=== PATIENT | male | born 1950 | race Caucasian/White ===

== ENCOUNTER 2023-10-28 11:13 | Emergency (ER) | payer MEDICARE, OTHER, SELFPAY ==
[2023-10-28 11:27] VITALS: BP 128/84
[2023-10-28 11:41] VITALS: BMI 29.2
--- NOTE | 2023-10-28 12:08 | ED.GENMED ---
History of Present Illness
<Opal Jenkins PA-C - Last Filed: 10/28/23 17:40>
General
Chief Complaint: Abdominal Pain
Source: patient
Exam Limitations: none
Time Seen by Provider: 10/28/23 11:34
Nursing documentation reviewed up to this point in time: agreed with
Travel History
Have you had any contact with someone who has COVID-19?: No
Do you have any symptoms of coronavirus? Fever > 100 degrees, chills, cough, shortness of breath, sore throat, loss of taste or smell, muscle aches, or headache?: No
History of Present Illness
History of Present Illness:
The patient is a 73 year old male with history CAD, hypertension, perforated diverticulitis, kidney stones, hypothyroid, bladder cancer in remission presenting to the emergency department for evaluation of left lower abdominal pain. Symptoms
started 3 days ago, on Friday, after eating breakfast. Pain seems to come and go and is worse after eating, but has persisted since Friday. Patient does report some radiation of pain to left lower back. Patient reports associated diarrhea but
denies any nausea, vomiting. Patient denies any urinary symptoms. Patient denies any fever, chills, chest pain, shortness of breath.
Patient states that this seems similar to prior diverticulitis flare in the past in 2019. Patient states symptoms are different than prior kidney stones.
Past History
<Opal Jenkins PA-C - Last Filed: 10/28/23 17:40>
Past History
ED Past Medical History: CAD, GERD, HTN, Hypercholesterolemia, Hypothyroidism and Other (bladder ca, Pre-diabetic, Kidney stones)
ED Past Surgical History: Cardiac (3 cessel CABG 2016) and Urological (Bladder cancer surgeries)
Social History
Tobacco: Non-smoker (Cigars)
Alcohol: None
Drug: None
Personal:
Living: with family
Employment: Employed
Family History
Family History: Other (Noncontributory)
Phy Exam
<Opal Jenkins PA-C - Last Filed: 10/28/23 17:40>
Physical Exam
Physical Exam:
General: In no apparent distress, nontoxic appearing
Vitals: Vital signs stable, afebrile
HEENT: Atraumatic, normocephalic; pupils equal round reactive to light bilaterally, sclera anicteric bilaterally, protecting airway
Neck: appears supple, trachea midline
CV: Regular rate and rhythm, heart sounds normal, no evidence of cyanosis
Resp: No evidence of respiratory distress, lungs clear bilaterally
Abd: Soft, mildly tender in left lower quadrant without rebound or guarding, non-distended
Extremities: No deformities, no evidence of cyanosis or edema; DP pulse palpable equal bilateral
Neuro: alert and oriented x 3; grossly intact
Psych: Normal affect
Skin: Intact, no rashes
Course
<Opal Jenkins PA-C - Last Filed: 10/28/23 17:40>
Orders/Labs/Results
Orders:
Orders
10/28/23 12:00
0.9% Sodium Chloride 1000 ml [Nss] 1,000 ml IV BOLUS
10/28/23 12:04
CT Abd/Pel (IV only)-DH only Urgent
Comment:
Reason For Exam: LLQ abdominal pain, hx perforated diverticulitis
10/28/23 12:09
Complete Blood Count/With Diff Urgent
Comprehensive Metabolic Panel Urgent
Lipase Urgent
10/28/23 13:20
Urinalysis Reflex To Culture Urgent
Date Specimen was Collected: 10/28/23
Time Specimen was Collected: 13:19
10/28/23 13:31
Amoxicillin 875 mg/Clav 125 mg [Augmentin 875 mg/125 mg] 1 tablet PO NOW STA
Abnormal Lab Results
04/30/24 04/30/24
12:09 13:20
RBC 4.12 L 10^6/uL
(4.70-6.10)
Hgb 12.6 L g/dL
(13.0-18.0)
Hct 36.2 L %
(39.0-52.0)
Absolute Monos (auto) 1.0 H 10^3/uL
(0.1-0.6)
Monocytes % 13.1 H %
(1.7-9.3)
Sodium 134 L mmol/L
(135-145)
Glucose 156 H mg/dl
(70-99)
Urine Ketones Trace A
(Negative)
Urine Bilirubin 1+ A
(Negative)
Urine Glucose Trace A
(Negative)
10/28/23 12:09
10/28/23 12:09
Vital Signs
Initial and Last Documented VS:
Initial Vital Signs
Temp Pulse Resp BP Pulse Ox
98.9 F 72 18 128/84 94
10/28/23 11:27 10/28/23 11:27 10/28/23 11:27 10/28/23 11:27 10/28/23 11:27
Last Documented Vital Signs
Temp Pulse Resp BP Pulse Ox
98.9 F 68 16 142/68 99
10/28/23 11:27 10/28/23 13:21 10/28/23 13:21 10/28/23 13:21 10/28/23 13:21
<Heidy Austin MD - Last Filed: 10/28/23 13:32>
Orders/Labs/Results
Orders:
Orders
10/28/23 12:00
0.9% Sodium Chloride 1000 ml [Nss] 1,000 ml IV BOLUS
10/28/23 12:04
CT Abd/Pel (IV only)-[facility] only Urgent
Comment:
Reason For Exam: LLQ abdominal pain, hx perforated diverticulitis
10/28/23 12:09
Complete Blood Count/With Diff Urgent
Comprehensive Metabolic Panel Urgent
Lipase Urgent
10/28/23 13:20
Urinalysis Reflex To Culture Urgent
Date Specimen was Collected: 10/28/23
Time Specimen was Collected: 13:19
10/28/23 13:31
Amoxicillin 875 mg/Clav 125 mg [Augmentin 875 mg/125 mg] 1 tablet PO NOW STA
Abnormal Lab Results
10/28/23 10/28/23
12:09 13:20
RBC 4.12 L 10^6/uL
(4.70-6.10)
Hgb 12.6 L g/dL
(13.0-18.0)
Hct 36.2 L %
(39.0-52.0)
Absolute Monos (auto) 1.0 H 10^3/uL
(0.1-0.6)
Monocytes % 13.1 H %
(1.7-9.3)
Sodium 134 L mmol/L
(135-145)
Glucose 156 H mg/dl
(70-99)
Urine Ketones Trace A
(Negative)
Urine Bilirubin 1+ A
(Negative)
Urine Glucose Trace A
(Negative)
10/28/23 12:09
10/28/23 12:09
Vital Signs
Initial and Last Documented VS:
Initial Vital Signs
Temp Pulse Resp BP Pulse Ox
98.9 F 72 18 128/84 94
10/28/23 11:27 10/28/23 11:27 10/28/23 11:27 10/28/23 11:27 10/28/23 11:27
Last Documented Vital Signs
Temp Pulse Resp BP Pulse Ox
98.9 F 68 16 142/68 99
10/28/23 11:27 10/28/23 13:21 10/28/23 13:21 10/28/23 13:21 10/28/23 13:21
<Opal Jenkins PA-C - Last Filed: 10/28/23 17:40>
MDM/Problems Addressed
Differential Diagnosis Includes:
Not limited to: Diverticulitis, kidney stone, constipation, colitis, appendicitis,
MDM/Problems Addressed:
Patient is 73-year-old male with history of perforated diverticulitis presenting for evaluation of left lower quadrant abdominal pain worsening over the past few days. Some associated diarrhea. No fever, chill, nausea, vomiting. Vitals are
stable. Exam as above. He is nontoxic-appearing. He does have some mild tenderness in left lower quadrant without any rebound or guarding. No CVA tenderness. Patient describes this is very similar to his prior diverticulitis flare which
required admission and IV antibiotics. Will check basic labs, urinalysis. Will check CT of abdomen/pelvis. Will give IV fluids. Patient declines any analgesia at this time.
Labs noted. No clinically significant abnormalities. CT pending.
CT shows no acute abnormalities. No evidence diverticulitis seen on imaging. No other findings on labs, urine to explain symptoms. On reassessment�patient does have some persistent abdominal tenderness in left lower quadrant. Given persistent
pain and history of diverticulitis with associated perforation-considered treatment for mild diverticulitis flare despite negative imaging. Shared decision making with patient. Will proceed with antibiotics. First dose of Augmentin given in
emergency department today. Return precautions discussed with patient. Stable for discharge.
Chronic conditions affecting care:
Diverticulosis, prior perforated diverticulitis
Acute Exacerbation and/or Progression of Chronic Illness:
Possible mild acute diverticulitis
<Opal Jenkins PA-C - Last Filed: 10/28/23 17:40>
*Radiology
Radiology exam reviewed: preliminary read by ED provider and radiology read reviewed
*Pulse Oximetry
Patient hypoxic: no
*EKG
Interpreted by ED Provider?: NA
*Stick Welder Interpretation
Rate: Stick Welder- N/A
*Critical Care Note
Total Time (30-74mins, 75-104mins- exclusive of procedures): Not Applicable
Data Reviewed
Review of Other/Old Records Reveals: Labs, Records, Radiology Studies and Progress Notes
Source: previous radiology exam and previous hospital records
ED Attending Note
<Opal Jenkins PA-C - Last Filed: 10/28/23 17:40>
-
Portions of this chart may have been created with voice recognition software.� Occasional wrong word or��sound alike� substitutions may have occurred due to the inherent limitations of voice recognition software.
<Heidy Austin MD - Last Filed: 10/28/23 13:32>
ED Attending Note
Patient seen and examined by attending physician: Yes
I performed the substantive portion of visit, reviewed & personally made and approve the management plan that is documented in note by myself or EDUIN.: Yes
ED Attending Note:
On exam, patient appears nontoxic. Heart sounds regular lungs are clear. Patient still has left lower quadrant and left lower thoracic abdominal tenderness. Patient reports that he feels like acute diverticulitis. Given his clinical
presentation, he will be treated as early uncomplicated acute diverticulitis
Discharge Plan
Departure
Patient Disposition: Home (Routine Discharge)
Date of Disposition: 10/28/23
Time of Disposition: 13:34
Patient with high blood pressure during this ER visit?: No
Condition: Good
Covid-19: Not Applicable
Discharge Problem:
Abdominal pain
Instructions: Low Fiber Diet, Diverticulitis (DC), Abdominal Pain
Prescriptions:
New
amoxicillin-pot clavulanate 875-125 mg tablet
1 tab PO BID 10 Days Qty: 20 0RF
No Action
acetaminophen 325 MG tablet
650 mg PO Q4HPRN PRN (Reason: mild pain, fever, headache) Qty: 0 0RF
metoprolol tartrate 25 MG tablet
25 mg PO BID Qty: 60 3RF
atorvastatin 40 MG tablet
40 mg PO QPM
aspirin 81 MG tablet,delayed release (DR/EC)
81 mg PO DAILY
diltiazem HCl 180 MG capsule,extended release 24hr
360 mg PO DAILY
ranitidine HCl [Zantac 75] 75 MG tablet
75 mg PO BID
levothyroxine 112 MCG tablet
112 mcg PO DAILY
omega 2-gec-xik-fish oil [Fish Oil] 1 EACH capsule
1 ea PO BID
multivitamin with folic acid [Tab-A-Dulce] 1 TABLET tablet
1 tab PO HS
metronidazole 500 MG tablet
500 mg PO Q8H Qty: 15 0RF
levofloxacin 500 MG tablet
500 mg PO DAILY Qty: 5 0RF
Referrals:
Radha Valerio MD [Family Provider] - Follow up in 1 week
Activity Restrictions/Additional Instructions:
- Return to the emergency department with any high fevers, severe abdominal pain, worsening abdominal pain, intractable nausea/vomiting, persistent diarrhea, chest pain, shortness of breath, worsening current symptoms, or any other concerns
-As discussed�will treat for a possible case of mild diverticulitis with a course of antibiotics. This prescription has been sent to your pharmacy. You were given your first dose while in the emergency department today
-You can take Tylenol/Motrin as needed for discomfort. I recommend a low fiber diet for the next few days and advance as tolerated.
-You should follow-up with your primary care provider in the next week to ensure symptoms are improving
Interventions
Interventions:
*Risk Screen - Suicide Last Done: 10/28/23 11:39
*General Assessment Last Done: 10/28/23 11:41
*Neglect/Abuse Screening Last Done: 10/28/23 11:39
ED- Fall Risk Assessment Last Done: 10/28/23 13:39
*ED COVID-19 Vaccine History Last Done: 10/28/23 11:27
*Nursing Disposition Last Done: 10/28/23 13:39
SW-Vupbst-Hmhnxxltze Assessment Last Done: 10/28/23 11:40
Discharge Date and Time
Discharge Date/Time: 10/28/23 13:51
Print Language: FRENCH
[2023-10-28] MEDS: NSS 1000 IV (12:13)
[2023-10-28 12:23] LABS: % Basophils 0.4 % (0-2); % Eosinophils 1.3 % (0-6); % Immature Granulocytes 0.3 % (0-0.5); % Lymphocytes 24.4 % (20.5-51.1); % Monocytes 13.1 % (1.7-9.3); % Neutrophils 60.5 % (42.2-75.2); Absolute Eosinophils 0.1 10^3/uL (0-0.7); Absolute Lymphocytes 1.9 10^3/uL (1.2-3.4); Absolute Neutrophils 4.6 10^3/uL (1.4-6.5); Hematocrit 36.2 % (39.0-52.0); Hemoglobin 12.6 g/dL (13.0-18.0); Mean Corp Hgb Conc. 34.8 g/dL (33.0-37.0); Mean Corpuscular Hgb 30.6 pg (27.0-31.0); Mean Corpuscular Volume 87.9 fL (80.0-94.0); Mean Platelet Volume 10.1 fL (7.4-10.4); Nucleated Red Blood Cells % 0 % (-); Platelet Count 215 10^3/uL (130-400); Red Blood Cell Count 4.12 10^6/uL (4.70-6.10); Red Cell Dist. Width 12.1 % (11.5-14.5); White Blood Cell Count 7.6 10^3/uL (4.8-10.8)
[2023-10-28 12:34] LABS: ALT (SGPT) 18 U/L (0-50); AST (SGOT) 19 U/L (17-59); Albumin 4.3 g/dl (3.5-5.0); Alkaline Phosphatase 56 U/L (38-126); Blood Urea Nitrogen 16 mg/dl (9-20); Calcium 9.4 mg/dl (8.4-10.2); Carbon Dioxide 26 mmol/L (22-30); Chloride 100 mmol/L (98-107); Estimated Creatinine Clearance 63 ml/min; Glucose 156 mg/dl (70-99); Lipase 298 U/L (23-300); Sodium 134 mmol/L (135-145); Total Bilirubin 0.6 mg/dl (0.2-1.3); Total Protein 6.9 g/dl (6.3-8.2); eGFR > 60.00
[2023-10-28 13:21] VITALS: BP 142/68
[2023-10-28 13:27] LABS: Urine Albumin Negative (Neg - Trace); Urine Bilirubin 1+ (Negative); Urine Character Clear (Clear); Urine Color Yellow; Urine Glucose Trace (Negative); Urine Ketone Trace (Negative); Urine Leukocyte Negative (Negative); Urine Nitrite Negative (Negative); Urine Occult Blood Negative (Negative); Urine Specific Gravity 1.015 (<1.030); Urine Urobilinogen Negative (Neg - 1+)
[2023-10-28] MEDS: AUGMENTIN 875 MG/125 MG 1 TABLET PO (13:34)
== END 2023-10-28 13:51 | disposition home or self-care (01) ==
LOC: EMR 11:13
PROVIDERS: Physician Assistant; EMERGENCY PHYSICIAN Emergency Medicine; FAMILY PHYSICIAN Family Medicine
DX: R10.32 Left lower quadrant pain (principal); I25.10 Atherosclerotic heart disease of native coronary artery without angina pectoris; I10 Essential (primary) hypertension; E03.9 Hypothyroidism, unspecified; K21.9 Gastro-esophageal reflux disease without esophagitis; Z95.1 Presence of aortocoronary bypass graft
CPT/HCPCS: 99284; 74177; 80053; 81003; 83690; 85025; Q9967

== ENCOUNTER → 2024-07-09 13:45 | Outpatient (REF) | payer MEDICARE, OTHER, SELFPAY | LOC: CLAB 13:45 | PROVIDERS: ATTENDING PHYSICIAN Specialist | DX: R97.20 Elevated prostate specific antigen [PSA] (principal) | CPT/HCPCS: 88305 ==

== ENCOUNTER → 2024-08-10 07:11 | Outpatient (REF) | payer MEDICARE, OTHER, SELFPAY | LOC: MRI 3T 07:11 | PROVIDERS: ATTENDING PHYSICIAN Specialist; FAMILY PHYSICIAN Family Medicine | DX: C61 Malignant neoplasm of prostate (principal) | CPT/HCPCS: 72197; A9575 ==